=== PATIENT | female | born 1995 | race African-American/Black ===

== ENCOUNTER 2018-02-24 08:18 | Emergency (ER) | payer OTHER ==
--- NOTE | 2018-02-24 08:47 | ED Physician Documentation ---
PD HPI ABD PAIN - Stated complaint Stated Complaint: ABD PX/16 WKS PREG - Chief complaint Chief Complaint: Abd Pain - History obtained from History obtained from: Patient - History of Present Illness Timing - onset: How many days ago (5) Timing - duration: Days (5) Timing - details: Waxing and waning Location: LUQ, Other (lower abdomen) Worsened by: Position (lying on left side) Associated symptoms: Vaginal bleeding (occasional spotting.). No: Fever, Nausea , Vomiting, Dysuria Similar symptoms before: Has not had sx before - Additional information Additional information: The patient is a 22-year-old spontaneous AB 1, active duty [employer] female, who presents with lower abdominal and left upper quadrant abdominal pain that has been waxing and waning for the past 5 days. The pain is worse with position , lying on her left side. She denies associated fever, nausea or vomiting, or dysuria. She does report occasional vaginal spotting. She is currently at about 17 weeks gestation. She denies history of similar symptoms in the past. She recently returned from deployment in [facility]. Review of Systems Constitutional: denies: Fever Nose: denies: Congestion Throat: denies: Sore throat Cardiac: denies: Chest pain / pressure Respiratory: denies: Dyspnea, Cough GI: reports: Abdominal Pain. denies: Nausea, Vomiting, Diarrhea : reports: Vaginal bleeding (occasional spotting), Now EGA (about 17 weeks gestation). denies: Dysuria Skin: denies: Rash Musculoskeletal: denies: Back pain Neurologic: denies: Headache PD PAST MEDICAL HISTORY - Past Surgical History Past Surgical History: Yes - Present Medications Home Medications: Ambulatory Orders Medication Instructions Recorded Confirmed Ibuprofen [Motrin] 800 mg PO Q8H PRN #30 tablet 08/02/15 - Allergies Allergies/Adverse Reactions: Allergies Allergy/AdvReac Type Severity Reaction Status Date / Time No Known Drug Allergies Allergy Verified 08/02/15 12:27 - Social History Does the pt smoke?: No Smoking Status: Never smoker Does the pt drink ETOH?: No Does the pt have substance abuse?: No - Immunizations Immunizations are current?: Yes PD ED PE NORMAL - Vitals Vital signs reviewed: Yes (normal) - General General: Alert and oriented X 3, Well developed/nourished - HEENT HEENT: Atraumatic, Moist mucous membranes - Neck Neck: No adenopathy - Cardiac Cardiac: RRR, No murmur - Respiratory Respiratory: No respiratory distress, Clear bilaterally - Abdomen Abdomen: Soft, Non tender, Other (Gravid uterus, without tenderness to palpation.) - Back Back: No CVA TTP - Derm Derm: No rash - Extremities Extremities: No edema, No calf tenderness / cord - Neuro Neuro: Alert and oriented X 3, No motor deficit, Normal speech Results - Vitals Vitals: Vital Signs - 24 hr 02/24/18 02/24/18 02/24/18 08:20 10:22 13:18 Temperature 36.3 C L 98.7 C H Heart Rate 103 H 90 90 Respiratory 18 18 20 Rate Blood Pressure 129/77 114/67 121/75 O2 Saturation 100 100 100 Oxygen O2 Source Room air - Labs Labs: Laboratory Tests 02/24/18 02/24/18 02/24/18 08:35 09:05 09:05 WBC 4.5 L RBC 3.46 L Hgb 10.8 L Hct 31.0 L MCV 89.6 MCH 31.2 H MCHC 34.8 RDW 13.6 Plt Count 209 MPV 7.4 L Neut # (Auto) 2.5 Lymph # (Auto) 1.7 [place] # (Auto) 0.3 Eos # (Auto) 0.0 Baso # (Auto) 0.0 Absolute Nucleated RBC 0.00 Nucleated RBC % 0.0 Sodium 135 Potassium 3.3 L Chloride 104 Carbon Dioxide 25 Anion Gap 6.0 BUN 9 Creatinine 0.6 Estimated GFR (MDRD) 149 Glucose 79 Calcium 9.2 Urine Color YELLOW Urine Clarity CLEAR Urine pH 7.5 Ur Specific [place] 1.020 Urine Protein NEGATIVE Urine Glucose (UA) NEGATIVE Urine Ketones NEGATIVE Urine Occult Blood NEGATIVE Urine Nitrite NEGATIVE Urine Bilirubin NEGATIVE Urine Urobilinogen 0.2 (NORMAL) Ur Leukocyte Esterase NEGATIVE Ur Microscopic Review NOT INDICATED Urine Culture Comments NOT INDICATED - Rads (name of study) pelvic U/S Radiology: Prelim report reviewed, See rad report (Robles live intrauterine with gestational age 20 weeks 0 days based on LMP dating. size is within expected limits for assigned dating. No placental abruption or concha- placental bleeding.) PD MEDICAL DECISION MAKING - ED course Complexity details: reviewed results, re-evaluated patient, considered differential, d/w patient ED course: The patient's presentation is most consistent with intrauterine , estimated to be about 20 weeks gestation by ultrasound. There is no evidence of placental abruption or concha-placental bleeding. Urinalysis is negative. Her presentation does not suggest appendicitis or diverticulitis. The patient remained asymptomatic while in the emergency department. I discussed with her the ultrasound results, the importance of outpatient OB follow-up, as well as potentially worrisome signs or symptoms that should prompt reevaluation in the emergency department. - Sepsis Event Vital Signs: Vital Signs - 24 hr 02/24/18 02/24/18 02/24/18 08:20 10:22 13:18 Temperature 36.3 C L 98.7 C H Heart Rate 103 H 90 90 Respiratory 18 18 20 Rate Blood Pressure 129/77 114/67 121/75 O2 Saturation 100 100 100 Oxygen O2 Source Room air Departure - Departure Disposition: 01 Home, Self Care Clinical Impression: Pelvic cramping Intrauterine normal Qualifiers: Trimester: second trimester Qualified Code(s): Z34.92 - Encounter for supervision of normal , unspecified, second trimester Condition: Stable Instructions: ED Pelvic Pain UKO, ED Care Follow-Up: [facility] [Provider Group] Comments: You can use Tylenol, 2 mg 4 times daily if needed for cramping pain. Follow up with [facility] within 1 week if possible. Call to schedule appointment. Return to the emergency department if increasing abdominal or pelvic pain, fever , increased vaginal bleeding, or otherwise worsening symptoms. Discharge Date/Time: 02/24/18 13:20
[2018-02-24 09:02] LABS: BILIRUBIN,URINE NEGATIVE (NEGATIVE); GLUCOSE, URINE (UA) NEGATIVE (NEGATIVE); KETONES,URINE (UA) NEGATIVE (NEGATIVE); LEUKOCYTE ESTERASE, URINE NEGATIVE (NEGATIVE); NITRITE,URINE NEGATIVE (NEGATIVE); OCCULT BLOOD,URINE NEGATIVE (NEGATIVE); PH,URINE 7.5 PH (5.0-7.5); PROTEIN,URINE NEGATIVE (NEGATIVE); UROBILINOGEN,URINE 0.2 (NORMAL) E.U./dL (NORMAL)
[2018-02-24 09:08] LABS: CLARITY,URINE CLEAR (CLEAR)
[2018-02-24 09:15] LABS: BASOPHILS % (AUTO) 0.5 %; EOSINOPHILS % (AUTO) 0.4 %; HGB - HEMOGLOBIN 10.8 g/dL (12.0-16.0); LYMPHOCYTES # (AUTO) 1.7 10^3/uL (1.5-3.5); MEAN CORPUSCULAR HEMOGLOBIN 31.2 pg (27.0-31.0); MEAN CORPUSCULAR HGB CONC 34.8 g/dL (32.0-36.0); MEAN CORPUSCULAR VOLUME 89.6 fL (81.0-99.0); MEAN PLATELET VOLUME 7.4 fL (7.9-10.8); MONOCYTES # (AUTO) 0.3 10^3/uL (0.0-1.0); MONOCYTES % (AUTO) 6.1 %; NEUTROPHILS # (AUTO) 2.5 10^3/uL (1.5-6.6); PLT - PLATELET COUNT 209 10^3/uL (130-450); RED BLOOD COUNT 3.46 10^6/uL (4.20-5.40); RED CELL DISTRIBUTION WIDTH 13.6 % (12.0-15.0); WHITE BLOOD COUNT 4.5 x10^3/uL (4.8-10.8)
[2018-02-24 09:26] LABS: CALCIUM 9.2 mg/dL (8.5-10.3); CREATININE 0.6 mg/dL (0.4-1.0)
--- NOTE | 2018-02-24 12:13 | Ultrasound Report ---
Procedure Date: 02/24/2018 Accession Number: [id number] / [id number] Procedure: US - OB 14+ Weeks CPT Code: FULL RESULT: EXAM: LIMITED OBSTETRICAL ULTRASOUND EARLY SECOND TRIMESTER EXAM DATE: 02/24/2018 10:25 AM. CLINICAL HISTORY: Vaginal spotting at second trimester gestation. LMP: 10/07/2017. COMPARISON: None. TECHNIQUE: Real-time sonographic evaluation of the transabdominal and transvaginal exam by the packaging associate. Multiple technical account representative static images were saved for review. DATING: EGA 20 weeks 0 days with GERALDO 07/14/2018 based on LMP. EGA 19 weeks 0 days with GERALDO 07/21/2018 based on the current ultrasound. GENERAL EVALUATION Robles . Cardiac activity: 133 bpm. movement: Visualized. Presentation: Cephalic. Placenta: Anterior position. No evidence for previa. Amniotic fluid: Subjectively normal. ADILSON 15.3 cm. BIOMETRY Bi-Parietal Diameter (BPD): 5.2 cm, 21w4d Head Circumference (HC): 15.1 cm, 18w1d Abdominal Circumference (AC): 12.8 cm, 18w2d Femur Length (FL): 2.7 cm, 18w2d Estimated Weight: 4.256 gm. ANATOMY Limited exam, no anatomic abnormality is visualized. MATERNAL STRUCTURES Uterus: Unremarkable. Cervix: Long and closed. 4.72 cm in length. Right ovary/adnexa: Unremarkable. Left ovary/adnexa: Unremarkable. Free fluid: None. IMPRESSION: 1. Robles live intrauterine with gestational age 20 weeks 0 days based on LMP dating. 2. size is within expected limits for assigned dating. 3. No placenta abruption or concha-placenta bleeding. Note: Detailed anatomic survey at 18-22 weeks is recommended for all fetuses evaluated prior to 18 weeks, as some structural abnormalities may be inapparent at earlier gestational ages. RADIA
[2018-02-24 13:18] VITALS: BP 121/75
== END 2018-02-24 13:20 | disposition home or self-care (01) ==
LOC: ED 08:18
DX: Z34.92 Encounter for supervision of normal pregnancy, unspecified, second trimester (principal); R10.2 Pelvic and perineal pain
CPT/HCPCS: 36415; 76805; 76817; 80048; 81001; 81003; 85025; 87086; 99283

== ENCOUNTER 2018-07-08 04:28 | Emergency (ER) | payer OTHER ==
--- NOTE | 2018-07-08 04:42 | ED Physician Documentation ---
PD HPI HEENT - Stated complaint Stated Complaint: SORE THROAT - History obtained from History obtained from: Patient - History of Present Illness Timing - onset: Other (2-3 weeks) Timing - details: Intermittant Location: Throat Improves: Nothing Worsens: Position (at times, seems worse when supine) Associated symptoms: No: Fever, Congestion, Unable to swallow, Cough Similar symptoms before: Has not had sx before Recently seen: Not recently seen - Additional information Additional information: c/o 2-3 weeks of burning pain in throat without apparent ameliorating factors; sometimes has seemed more frequent and pronounced when lying supine. Review of Systems Constitutional: denies: Fever, Chills, Sweats Throat: reports: Sore throat PD PAST MEDICAL HISTORY - Past Medical History Past Medical History: No - Past Surgical History Past Surgical History: Yes - Present Medications Home Medications: Ambulatory Orders Medication Instructions Recorded Confirmed Ibuprofen [Motrin] 800 mg PO Q8H PRN #30 tablet 08/02/15 Lidocaine Viscous 2% [Xylocaine 15 ml MM Q4H PRN #1 bottle 07/08/18 Viscous 2%] Omeprazole 20 mg PO DAILY #14 tablet. 07/08/18 - Allergies Allergies/Adverse Reactions: Allergies Allergy/AdvReac Type Severity Reaction Status Date / Time No Known Drug Allergies Allergy Verified 07/08/18 04:41 - Social History Does the pt smoke?: No Smoking Status: Never smoker Does the pt drink ETOH?: No Does the pt have substance abuse?: No - Immunizations Immunizations are current?: Yes PD ED PE NORMAL - Vitals Vital signs reviewed: Yes - General General: Alert and oriented X 3, No acute distress, Well developed/nourished - HEENT HEENT: Moist mucous membranes, Pharynx benign - Abdomen Abdomen: Soft, Non tender Results - Vitals Vitals: Vital Signs - 24 hr 07/08/18 06:00 Blood Pressure 148/94 H Oxygen O2 Source Room air PD MEDICAL DECISION MAKING - ED course Complexity details: re-evaluated patient, considered differential, d/w patient ED course: Pharynx appears normal on exam. Symptoms have been episodic x 2 weeks, describes as a burning sensation. Worse with lying supine. She also has had some mild burning discomfort in epigastrium. I suspect GERD; she reported some improvement with "GI cocktail" (lidocaine, donnatol, maalox). Will rx viscous lidocaine, prilosec. Departure - Departure Disposition: 01 Home, Self Care Clinical Impression: GERD (gastroesophageal reflux disease) Condition: Good Instructions: ED GERD Follow-Up: [facility] [Provider Group] Prescriptions: Lidocaine Viscous 2% [Xylocaine Viscous 2%] 15 ml MM Q4H PRN #1 bottle PRN Reason: Heartburn Omeprazole 20 mg PO DAILY #14 tablet.dr Discharge Date/Time: 07/08/18 06:10
[2018-07-08] MEDS ORDERED: MAG HYDROX/AL HYDROX/SIMETH 30 ML UDC PO STA (04:51)
[2018-07-08] MEDS ORDERED: PHENobarb/HYOSCY/ATROPINE/SCOP 5 ML UDC PO STA (04:52)
[2018-07-08] MEDS ORDERED: LIDOCAINE VISCOUS 2% 15 ML UDC MM STA (04:52)
[2018-07-08 06:00] VITALS: BP 148/94
--- NOTE | 2018-07-08 17:09 | ED Physician Documentation ---
ED Addendum - Addendum Addendum: 07/08/18 17:08 Took call from pharmacy, they needed clarification on the lidocaine pre scription. It looks like Dr. Gallego was prescribing it to her for reflux so I asked them to prescribe 5 mL p.o. every 4 hours as needed for stomach pain and counseled the patient not to use more than prescribed.
== END 2018-07-08 06:10 | disposition home or self-care (01) ==
LOC: ED 04:28
DX: K21.9 Gastro-esophageal reflux disease without esophagitis (principal)
CPT/HCPCS: 99283; A9270

== ENCOUNTER 2018-12-13 11:00 | Emergency (ER) | payer OTHER ==
--- NOTE | 2018-12-13 12:58 | ED Physician Documentation ---
PD HPI HEADACHE - Stated complaint Stated Complaint: HEADACHE - Chief complaint Chief Complaint: General - History obtained from History obtained from: Patient - History of Present Illness Timing - onset: How many days ago (3) Timing - onset during: Light activity Timing - duration: Days (3) Timing - details: Gradual onset, Still present Worst headache ever?: No: Worst headache ever? (She does have occasional migraines about 2 to 3/year. She states the onset of this current headache was similar to other migraines. Those typically lasts just part of a day or a day and this 1 has persisted for 3 days. She is having light sensitivity as well as nausea and some vomiting. She has not had any fevers. She denies any injury. She denies any focal weaknesses or loss of vision.) Location: Front, Right Quality: Throbbing, Aching Associated symptoms: Nausea, Vomiting. No: Fever, Stiff neck, Weakness, Numbness, Vision changes Improved by: Dark room Worsened by: Light Contributing factors: No: Recent illness, Trauma Similar symptoms before: Diagnosis (Feels like migraine headaches she has had in the past though this 1 is longer than others.) Recently seen: Not recently seen (She states in the past with migraine episodes that last through the day, she would go to the [employer] [facility] and get "a shot" and we would then go home and rest and feel better. She is not sure what they had given in the past. She states she has not been given any prescriptions specifically for migraine medicines and so does not take anything at home for them other than ibuprofen.) Review of Systems Constitutional: denies: Fever, Myalgias Eyes: reports: Photophobia. denies: Decreased vision Nose: denies: Rhinorrhea / runny nose, Congestion Throat: denies: Sore throat Respiratory: denies: Cough GI: reports: Nausea, Vomiting. denies: Abdominal Pain, Diarrhea Skin: denies: Rash Neurologic: reports: Headache. denies: Focal weakness, Numbness, Confused, Altered mental status PD PAST MEDICAL HISTORY - Past Medical History Cardiovascular: None Respiratory: None Neuro: Migraines Endocrine/Autoimmune: None GI: None DRY LUMBER GRADER: None : None HEENT: None Psych: None Musculoskeletal: None Derm: None - Past Surgical History Past Surgical History: Yes - Present Medications Home Medications: Ambulatory Orders Medication Instructions Recorded Confirmed Ibuprofen [Motrin] 800 mg PO Q8H PRN #30 tablet 01/16/16 Lidocaine Viscous 2% [Xylocaine 15 ml MM Q4H PRN #1 bottle 07/08/18 Viscous 2%] Omeprazole 20 mg PO DAILY #14 tablet. 07/08/18 Naproxen 375 mg PO BID #20 tablet 12/13/18 Ondansetron Odt [Zofran] 4 mg TL Q6H PRN #10 tablet 12/13/18 SUMAtriptan [Imitrex] 50 mg PO ONCE PRN #5 tablet 12/13/18 - Allergies Allergies/Adverse Reactions: Allergies Allergy/AdvReac Type Severity Reaction Status Date / Time No Known Drug Allergies Allergy Verified 12/13/18 11:09 - Social History Does the pt smoke?: No Smoking Status: Never smoker Does the pt drink ETOH?: No Does the pt have substance abuse?: No - Immunizations Immunizations are current?: Yes - POLST Patient has POLST: No PD ED PE NORMAL - Vitals Vital signs reviewed: Yes - General General: Alert and oriented X 3, No acute distress, Well developed/nourished - HEENT HEENT: PERRL, EOMI (light sensitive) - Neck Neck: Supple, no meningeal sign, No adenopathy - Cardiac Cardiac: RRR, No murmur - Respiratory Respiratory: Clear bilaterally - Abdomen Abdomen: Soft, Non tender - Derm Derm: Normal color, Warm and dry - Extremities Extremities: Normal ROM s pain - Neuro Neuro: Alert and oriented X 3, manager of hospital 2-12 intact, No motor deficit, No sensory deficit, Normal speech Eye Opening: Spontaneous Motor: Obeys Commands Verbal: Oriented GCS Score: 15 - Psych Psych: Normal mood Results - Vitals Vitals: Vital Signs - 24 hr 12/13/18 12/13/18 12/13/18 11:08 12:52 14:25 Temperature 37.2 C Heart Rate 67 89 78 Respiratory 14 14 16 Rate Blood Pressure 132/84 H 141/92 H 138/72 H O2 Saturation 99 100 100 Oxygen O2 Source Room air PD MEDICAL DECISION MAKING - ED course Complexity details: re-evaluated patient (She is feeling moderately improved with migraine targeted therapy with IV fluids as well. She is given a dose of pain medication as well and is feeling completely resolved of her headache. She is still has a normal neuro exam.), considered differential (The onset and character of the headache feels like her prior migraines according to the patient. The duration is longer than previous ones. There are no red flags per se and we will treated as a prolonged migraine.), d/w patient Departure - Departure Disposition: 01 Home, Self Care Clinical Impression: Migraine Qualifiers: Migraine type: without aura Status migrainosus presence: with status migrainosus Intractability: not intractable Qualified Code(s): G43.001 - Migraine without aura, not intractable, with status migrainosus Condition: Stable Record reviewed to determine appropriate education?: Yes Instructions: ED Headache Migraine Follow-Up: [facility] [Provider Group] Prescriptions: Naproxen 375 mg PO BID #20 tablet Ondansetron Odt [Zofran] 4 mg TL Q6H PRN #10 tablet PRN Reason: Nausea / Vomiting SUMAtriptan [Imitrex] 50 mg PO ONCE PRN #5 tablet PRN Reason: Migraine Comments: Rest today. Usual activity tomorrow. Stay well-hydrated. Use ondansetron if needed for nausea. Naproxen twice daily as needed for headache or pains. For subsequent migraines, you can try the ondansetron combined with a sumatriptan and on naproxen and see if the headache just goes away over 1/2-hour or so. Follow-up with your primary care otherwise. Discharge Date/Time: 12/13/18 15:55
[2018-12-13] MEDS ORDERED: SODIUM CHLORIDE 0.9% 1,000 ML IV ONE (13:09)
[2018-12-13] MEDS ORDERED: diphenhydrAMINE INJ 50 MG/ML VIAL IVP STA (13:09)
[2018-12-13] MEDS ORDERED: METOCLOPRAMIDE 10 MG/2 ML VIAL IVP STA (13:09)
[2018-12-13] MEDS ORDERED: KETOROLAC 30 MG/ML VIAL IVP STA (13:09)
[2018-12-13] MEDS ORDERED: DEXAMETHASONE 10 MG/ML VIAL IVP STA (13:09)
[2018-12-13 14:25] VITALS: BP 138/72
[2018-12-13] MEDS ORDERED: HYDROmorphone 1 MG/ML CARPUJECT IVP STA (14:45)
== END 2018-12-13 15:55 | disposition home or self-care (01) ==
LOC: ED 11:00
DX: G43.001 Migraine without aura, not intractable, with status migrainosus (principal)
CPT/HCPCS: 96374; 96375; 99283; 99284; J1170; J1200; J2765

== ENCOUNTER 2019-05-11 01:34 | Emergency (ER) | payer OTHER ==
[2019-05-11 01:42] VITALS: BP 146/81
[2019-05-11 01:54] LABS: BILIRUBIN,URINE NEGATIVE (NEGATIVE); GLUCOSE, URINE (UA) NEGATIVE (NEGATIVE); KETONES,URINE (UA) NEGATIVE (NEGATIVE); LEUKOCYTE ESTERASE, URINE LARGE (NEGATIVE); NITRITE,URINE NEGATIVE (NEGATIVE); OCCULT BLOOD,URINE MODERATE (NEGATIVE); PH,URINE 7.5 PH (5.0-7.5); PROTEIN,URINE TRACE mg/dL (NEGATIVE); UROBILINOGEN,URINE 0.2 (NORMAL) E.U./dL (NORMAL)
[2019-05-11 01:56] LABS: CLARITY,URINE HAZY (CLEAR); HCG UR QUAL NEGATIVE
[2019-05-11 02:01] LABS: BACTERIA,URINE Few /HPF (None Seen); SQUAMOUS EPITHELIAL CELL,UR RARE Squamous (<= Few)
[2019-05-11] MEDS ORDERED: LIDOCAINE 1% 2 ML VIAL MC ONE (02:48)
[2019-05-11] MEDS ORDERED: KETOROLAC 60 MG/2 ML VIAL IM STA (02:48)
[2019-05-11] MEDS ORDERED: cefTRIAXone 1 GM VIAL IM STA (02:48)
--- NOTE | 2019-05-11 03:08 | ED Physician Documentation ---
PD HPI FEMALE - Stated complaint Stated Complaint: BK PX - Chief complaint Chief Complaint: Abd Pain - History obtained from History obtained from: Patient - History of Present Illness Timing - onset: How many days ago (5) Timing - duration: Days (5) Timing - details: Gradual onset, Still present Associated symptoms: Back pain, Dysuria, Urinary frequency Contributing factors: No: Similar symptoms before: Diagnosis (UTI) Recently seen: Not recently seen - Additional information Additional information: 23-year-old female who had urinary symptoms for several days has now developed pain into her back and some nausea as well as urinary urgency and frequency. She did not get any significant relief with the use of Azo. Review of Systems Constitutional: denies: Fever Eyes: denies: Decreased vision Ears: denies: Ear pain Nose: denies: Congestion Throat: denies: Sore throat Cardiac: denies: Chest pain / pressure, Palpitations Respiratory: denies: Dyspnea, Cough GI: reports: Abdominal Pain, Nausea. denies: Vomiting : reports: Dysuria, Frequency Skin: denies: Rash Musculoskeletal: reports: Back pain PD PAST MEDICAL HISTORY - Past Medical History Cardiovascular: None Respiratory: None Neuro: Migraines Endocrine/Autoimmune: None GI: None HIGH COURT JUSTICE: None : None HEENT: None Psych: None Musculoskeletal: None Derm: None - Past Surgical History Past Surgical History: Yes - Present Medications Home Medications: Ambulatory Orders Medication Instructions Recorded Confirmed Ibuprofen [Motrin] 800 mg PO Q8H PRN #30 tablet 08/02/15 Lidocaine Viscous 2% [Xylocaine 15 ml MM Q4H PRN #1 bottle 07/08/18 Viscous 2%] Omeprazole 20 mg PO DAILY #14 tablet 07/08/18 Naproxen 375 mg PO BID #20 tablet 12/13/18 Ondansetron Odt [Zofran] 4 mg TL Q6H PRN #10 tablet 12/13/18 SUMAtriptan [Imitrex] 50 mg PO ONCE PRN #5 tablet 12/13/18 Hydrocodone/Acetaminophen 1 - 2 each PO Q6H PRN #14 tablet 05/11/19 [Hydrocodon-Acetaminophen 5-325] Ondansetron Odt [Zofran] 4 mg TL Q6H PRN #10 tablet 05/11/19 Sulfamethox/Trimeth 800/160 1 each PO BID #14 tablet 05/11/19 [Bactrim Ds] - Allergies Allergies/Adverse Reactions: Allergies Allergy/AdvReac Type Severity Reaction Status Date / Time No Known Drug Allergies Allergy Verified 12/13/18 11:09 - Social History Does the pt smoke?: No Smoking Status: Never smoker Does the pt drink ETOH?: No Does the pt have substance abuse?: No - Immunizations Immunizations are current?: Yes - POLST Patient has POLST: No PD ED PE NORMAL - Vitals Vital signs reviewed: Yes (hypertensive ) - General General: Alert and oriented X 3, No acute distress, Well developed/nourished - HEENT HEENT: Atraumatic, PERRL, EOMI - Neck Neck: Supple, no meningeal sign - Cardiac Cardiac: RRR, No murmur - Respiratory Respiratory: No respiratory distress, Clear bilaterally - Abdomen Abdomen: Soft, Non tender, No organomegaly - Back Back: No spinal TTP, Other (Right CVA tenderness to bimanual palpation of the right kidney only ) - Derm Derm: Normal color, Warm and dry, No rash - Extremities Extremities: No deformity, No edema - Neuro Neuro: Alert and oriented X 3, glazier artist 2-12 intact, No motor deficit, No sensory deficit, Normal speech Eye Opening: Spontaneous Motor: Obeys Commands Verbal: Oriented GCS Score: 15 - Psych Psych: Normal mood, Normal affect Results - Vitals Vitals: Vital Signs - 24 hr 05/11/19 01:39 Temperature 37 C Heart Rate 86 Respiratory 17 Rate Blood Pressure 146/81 H O2 Saturation 100 Oxygen O2 Source Room air - Labs Labs: Laboratory Tests 05/11/19 01:45 Urine Color LIGHT YELLOW Urine Clarity [place] Urine pH 7.5 Ur Specific [place] 1.010 Urine Protein TRACE Urine Glucose (UA) NEGATIVE Urine Ketones NEGATIVE Urine Occult Blood MODERATE H Urine Nitrite NEGATIVE Urine Bilirubin NEGATIVE Urine Urobilinogen 0.2 (NORMAL) Ur Leukocyte Esterase LARGE H Urine RBC 6-10 H Urine WBC 11-25 H Ur Squamous Epith Cells RARE Squamous Urine Bacteria Few Ur Microscopic Review INDICATED Urine Culture Comments INDICATED Urine HCG, Qual NEGATIVE PD MEDICAL DECISION MAKING - ED course Complexity details: reviewed results, re-evaluated patient, considered differential, d/w patient ED course: 23-year-old previously well female with urinary tract infection that is ascended into pyelonephritis. She is administered Rocephin 1 g IM and Toradol 60 mg IM[address] We will place her on some Septra and provide some pain medication and nausea medicine for use as needed. Departure - Departure Disposition: 01 Home, Self Care Clinical Impression: Pyelonephritis Condition: Stable Instructions: ED Kidney Infec Female Follow-Up: [facility] [Provider Group] Prescriptions: Hydrocodone/Acetaminophen [Hydrocodon-Acetaminophen 5-325] 1 - 2 each PO Q6H PRN #14 tablet PRN Reason: pain Ondansetron Odt [Zofran] 4 mg TL Q6H PRN #10 tablet PRN Reason: Nausea / Vomiting Sulfamethox/Trimeth 800/160 [Bactrim Ds] 1 each PO BID #14 tablet Forms: Activity restrictions Discharge Date/Time: 05/11/19 03:20
== END 2019-05-11 03:20 | disposition home or self-care (01) ==
LOC: ED 01:34
DX: N12 Tubulo-interstitial nephritis, not specified as acute or chronic (principal)
CPT/HCPCS: 81001; 81003; 81025; 87086; 87181; 96372; 99283; 99284

== ENCOUNTER 2019-07-26 09:09 | Emergency (ER) | payer OTHER ==
--- NOTE | 2019-07-26 10:15 | ED Physician Documentation ---
PD HPI URI - Stated complaint Stated Complaint: COUGH/HEADACHE - Chief complaint Chief Complaint: Resp - History obtained from History obtained from: Patient - History of Present Illness Timing - onset: How many days ago (4) Timing duration: Days (4) Timing details: Gradual onset Pain level max: 0 Pain level now: 0 Associated symptoms: Nasal congestion, Rhinorrhea, Dry cough. No: Fever Contributing factors: Sick contact Improves by: Rest Worsened by: Activity, Breathing Recently seen: Not recently seen Review of Systems Constitutional: denies: Fever, Chills Respiratory: denies: Cough GI: denies: Abdominal Pain, Nausea, Vomiting, Diarrhea PD PAST MEDICAL HISTORY - Past Medical History Past Medical History: Yes Cardiovascular: None Respiratory: None Neuro: Migraines Endocrine/Autoimmune: None GI: None [employer]: None : None HEENT: None Psych: None Musculoskeletal: None Derm: None - Past Surgical History Past Surgical History: Yes - Present Medications Home Medications: Ambulatory Orders Medication Instructions Recorded Confirmed Benzonatate [Tessalon Perle] 100 - 200 mg PO TID PRN #30 capsule 07/26/19 Cetirizine HCl/Pseudoephedrine 1 each PO BID PRN #30 tab.er.12h 07/26/19 [Zyrtec-D Tablet] - Allergies Allergies/Adverse Reactions: Allergies Allergy/AdvReac Type Severity Reaction Status Date / Time No Known Drug Allergies Allergy Verified 07/26/19 09:22 - Social History Does the pt smoke?: No Smoking Status: Never smoker Does the pt drink ETOH?: No Does the pt have substance abuse?: No - Immunizations Immunizations are current?: Yes - POLST Patient has POLST: No PD ED PE NORMAL - Vitals Vital signs reviewed: Yes - General General: Alert and oriented X 3, No acute distress - HEENT HEENT: PERRL, Ears normal, Moist mucous membranes - Neck Neck: Supple, no meningeal sign, No adenopathy - Cardiac Cardiac: RRR - Respiratory Respiratory: No respiratory distress, Clear bilaterally - Abdomen Abdomen: Soft, Non tender, Non distended - Derm Derm: Warm and dry, No rash - Neuro Neuro: Alert and oriented X 3 - Psych Psych: Normal mood, Normal affect Results - Vitals Vitals: Vital Signs - 24 hr 07/26/19 07/26/19 09:14 10:28 Temperature 37.1 C Heart Rate 98 89 Respiratory 16 16 Rate Blood Pressure 140/92 H 131/84 H O2 Saturation 97 100 Oxygen O2 Source Room air - Labs Labs: Laboratory Tests 07/26/19 09:30 Influenza A (Rapid) Negative Influenza B (Rapid) POSITIVE H PD MEDICAL DECISION MAKING - ED course Complexity details: considered differential, d/w patient ED course: Patient is positive for influenza B. She is afebrile. She is well-appearing, nontoxic. We will continue supportive care and have her follow-up with her doctor. Patient counseled regarding signs and symptoms for which I believe and urgent re-evaluation would be necessary. Patient with good understanding of and agreement to plan and is comfortable going home at this time This document was made in part using voice recognition software. While efforts are made to proofread this document, sound alike and grammatical errors may occur. Departure - Departure Disposition: 01 Home, Self Care Clinical Impression: Influenza Condition: Good Instructions: ED Flu Follow-Up: Jeff Oshea MD [Primary Care Provider] - Within 1 week Prescriptions: Benzonatate [Tessalon Perle] 100 - 200 mg PO TID PRN #30 capsule PRN Reason: Cough Cetirizine HCl/Pseudoephedrine [Zyrtec-D Tablet] 1 each PO BID PRN #30 tab.er.12h PRN Reason: nasal congestion Comments: Return if you worsen. Drink plenty of fluids and rest. Follow-up with your doctor next week if not better. Forms: Activity restrictions Discharge Date/Time: 07/26/19 10:25
[2019-07-26 10:30] VITALS: BP 131/84
== END 2019-07-26 10:25 | disposition home or self-care (01) ==
LOC: ED 09:09
DX: J10.1 Influenza due to other identified influenza virus with other respiratory manifestations (principal); Z86.69 Personal history of other diseases of the nervous system and sense organs
CPT/HCPCS: 87275; 87276; 99283; 99284